=== PATIENT | female | born 1955 | race Asian ===

== ENCOUNTER 2016-09-27 11:24 | Emergency (ER) | payer OTHER ==
[~2016-09-27] VITALS: Ht 144.8 cm; Wt 65.3 kg
[~2016-09-27 11:24] MED LIST: ATOR20TA58 PO; CHOL100013 PO; CYCL10TA2 PO; TRAM50TA PO
[2016-09-27 11:41] VITALS: BP 165/78
[2016-09-27] MEDS ORDERED: VALA10005 PO (12:21)
[2016-09-27] MEDS ORDERED: HYDR-971 PO (12:21)
--- NOTE | 2016-09-27 12:21 | PHYS DOC ---
Past Medical History Past Medical History: High Cholesterol, Other Additional Past Medical Histor: "kidney problem" Past Surgical History: Other Additional Past Surgical Histo: right nephrectomy Alcohol Use: None Drug Use: None Adult General Chief Complaint Chief Complaint: SKIN RASH/ABSCESS [facility] Patient is a 61 year old female who presents with a right-sided facial rash and facial pain is been ongoing for approximately a week. Patient is not been seen anywhere for this. She denies eye involvement. She does report some right ear pain as well. Patient states that she has had chickenpox in the past. Patient denies any fevers or chills. She does report myalgias. Review of Systems Review of Systems Constitutional: Denies fever or chills [] Eyes: Denies change in visual acuity, redness, or eye pain [] HENT: Denies nasal congestion or sore throat [] Respiratory: Denies cough or shortness of breath [] Cardiovascular: No additional information not addressed in HPI [] GI: Denies abdominal pain, nausea, vomiting, bloody stools or diarrhea [] : Denies dysuria or hematuria [] Musculoskeletal: Denies back pain or joint pain [] Integument: Denies rash or skin lesions [] Neurologic: Denies headache, focal weakness or sensory changes [] Endocrine: Denies polyuria or polydipsia [] Allergies Allergies Allergies Coded Allergies Type Severity Reaction Last Updated Verified Beef Containing Products Allergy Unknown rash/soa 12/23/14 No Physical Exam Physical Exam Constitutional: Well developed, well nourished, no acute distress, non-toxic appearance. [] HENT: Normocephalic, atraumatic, bilateral external ears normal, oropharynx moist, no oral exudates, nose normal. [] Eyes: PERRLA, EOMI, conjunctiva normal, no discharge. [] Neck: Normal range of motion, no tenderness, supple, no stridor. [] Cardiovascular:Heart rate regular rhythm, no murmur [] Lungs & Thorax: Bilateral breath sounds clear to auscultation [] Abdomen: Bowel sounds normal, soft, no tenderness, no masses, no pulsatile masses. [] Skin: Cluster vesicles in a near linear distribution on patient's right cheek extending toward her temporal region. This area is exquisitely tender to palpation. Back: No tenderness, no CVA tenderness. [] Extremities: No tenderness, no cyanosis, no clubbing, ROM intact, no edema. [] Neurologic: Alert and oriented X 3, normal motor function, normal sensory function, no focal deficits noted. [] Psychologic: Affect normal, judgement normal, mood normal. [] Current Patient Data Vital Signs Vital Signs Date Time Temp Pulse Resp B/P Pulse Ox O2 Delivery O2 Flow Rate FiO2 09/27/16 11:41 98.3 56 18 165/78 97 Room Air 98.3 EKG EKG [] Radiology/Procedures Radiology/Procedures [] Course & Med Decision Making Course & Med Decision Making Pertinent Labs and Imaging studies reviewed. (See chart for details) [] Dragon Disclaimer Dragon Disclaimer This electronic medical record was generated, in whole or in part, using a voice recognition dictation system. Departure Departure Impression: Primary Impression: Shingles Disposition: 01 HOME, SELF-CARE Condition: GOOD Referrals: REYNA GACRIA MD (PCP) Patient Instructions: Shingles, [id number] Additional Instructions: 1. Take the medication as prescribed. 2. Review the discharge instructions provided for self-care and reasons to return to the emergency department. 3. Follow-up with Dr. Garcia on 05 October as scheduled. Scripts Valacyclovir Hcl (Valtrex)1,000 Mg Tablet1 Tab PO BID #20 TAB Prov:COLE EVANS 09/27/16 Hydrocodone/Apap 5-325 (Navarro 5-325 Tablet)1 Each Tablet1 Tab PO PRN Q6HRS PRN PAIN #15 TAB Prov:COLE EVANS 09/27/16 COLE EVANS September 27, 2016 12:21
== END 2016-09-27 12:30 | disposition home or self-care (01) ==
LOC: EDBD 11:24 → ER 11:24
DX: B02.9 Zoster without complications (principal); H92.01 Otalgia, right ear; R51 Headache; E78.00 Pure hypercholesterolemia, unspecified; Z90.5 Acquired absence of kidney; Z91.018 Allergy to other foods
CPT/HCPCS: 99283

== ENCOUNTER → 2017-10-09 | Outpatient (CLI) | payer OTHER | END | disposition home or self-care (01) | LOC: KCIC MAMMO 12:59 | DX: Z12.31 Encounter for screening mammogram for malignant neoplasm of breast (principal) | CPT/HCPCS: 77067 ==

== ENCOUNTER 2021-09-01 08:53 | Inpatient (IN) | payer MEDICARE, MEDICAID ==
[~2021-09-01] VITALS: Ht 149.9 cm; Wt 66.0 kg
[~2021-09-01 08:53] MED LIST changes: +CYCL10TA19 PO; -CYCL10TA2 PO; +HYDR-3164 PO; +VALA10005 PO
[2021-09-01] MEDS ORDERED: NITROGLYCERIN SUBLINGUAL 0.4 MG BOTTLE OF 25. SL PRN (09:15)
[2021-09-01] MEDS ORDERED: ASPIRIN CHEWABLE 81 MG TABLET. PO ONE (09:15)
--- NOTE | 2021-09-01 09:29 | PHYS DOC ---
Past Medical History Past Medical History: High Cholesterol, Other Additional Past Medical Histor: "kidney problem",CHRONIC PAIN,LEGALLY BLIND Past Surgical History: Other Additional Past Surgical Histo: right nephrectomy Smoking Status: Never Smoker Alcohol Use: None Drug Use: None General Adult EDM: Chief Complaint: Palpitations HPI: HPI: Patient is a 66-year-old female that presents today with chest pain, left arm tingling and palpitations. Patient is a [place] speaking and her son is at the bedside translating for her. Patient reported that she woke up between 4 and 5 today with some palpitations and what she described as substernal chest pain, that radiated down her left arm, and diaphoresis, patient states she continues to have substernal chest pain, but the pain in the arm and diaphoresis has subsided. According to the son the patient does not take any anticoagulation or antiplatelet therapy at this time. Patient does have a past medical history of a right nephrectomy, legally blind, GERD, high cholesterol and asthma. Son states that patient normally walks with a walker at home and has exertional dyspnea on a regular basis. Patient has had all of her COVID vaccines including her booster. Patient denies fever, chills, nausea, vomiting, or diarrhea. Review of Systems: Review of Systems: Constitutional: Denies fever or chills. [] Eyes: Denies change in visual acuity. [] HENT: Denies nasal congestion or sore throat. [] Respiratory: Denies cough or shortness of breath. [] Cardiovascular: Denies chest pain or edema. [] GI: Denies abdominal pain, nausea, vomiting, bloody stools or diarrhea. [] : Denies dysuria. [] Musculoskeletal: Denies back pain or joint pain. [] Integument: Denies rash. [] Neurologic: Denies headache, focal weakness or sensory changes. [] Endocrine: Denies polyuria or polydipsia. [] Lymphatic: Denies swollen glands. [] Psychiatric: Denies depression or anxiety. [] Heart Score: C/O Chest Pain: Yes HEART Score for Chest Pain: HEART Score for Chest Pain Response (Comments) Value History Moderately Suspicious 1 ECG Nonspecific Repolarizatio 1 Age > 65 2 Risk Factors 1 or 2 Risk Factors 1 Troponin >1-<3x Normal Limit 1 Total 6 Risk Factors: Risk Factors: DM, Current or recent (<one month) smoker, HTN, HLP, family history of CAD, obesity. Risk Scores: Score 0 - 3: 2.5% MACE over next 6 weeks - Discharge Home Score 4 - 6: 20.3% MACE over next 6 weeks - Admit for Clinical Observation Score 7 - 10: 72.7% MACE over next 6 weeks - Early Invasive Strategies Current Medications: Current Medications Medications (Trade) Dose Ordered Sig/Jason Start Time Stop Time Status Last Admin Dose Admin Aspirin (Aspirin Chewable) 324 mg 1X ONCE 09/01/21 09:15 09/01/21 09:16 UNV Nitroglycerin (Nitrostat) 0.4 mg PRN Q5MIN PRN 09/01/21 09:15 09/02/21 09:14 UNV Allergies: Allergies: Allergies Coded Allergies Type Severity Reaction Last Updated Verified Beef Containing Products Allergy Unknown rash/soa 12/23/14 No Physical Exam: PE: Constitutional: Well developed, well nourished, no acute distress, non-toxic appearance. [] HENT: Normocephalic, atraumatic, bilateral external ears normal, oropharynx moist, no oral exudates, nose normal. [] Eyes: PERRLA, EOMI, conjunctiva normal, no discharge. [] Neck: Normal range of motion, no tenderness, supple, no stridor. [] Cardiovascular:Heart rate regular rhythm, no murmur [] Lungs & Thorax: Bilateral breath sounds clear to auscultation [] Abdomen: Bowel sounds normal, soft, no tenderness, no masses, no pulsatile masses. [] Skin: Warm, dry, no erythema, no rash. [] Back: No tenderness, no CVA tenderness. [] Extremities: No tenderness, no cyanosis, no clubbing, ROM intact, no edema, peripheral pulses are 2+ Neurologic: Alert and oriented X 3, normal motor function, normal sensory function, no focal deficits noted. [] Psychologic: Affect normal, judgement normal, mood normal. [] Current Patient Data: Labs: Laboratory Tests Test 09/01/21 09:17 White Blood Count 10.8 x10^3/uL Red Blood Count 4.43 x10^6/uL Hemoglobin 12.3 g/dL Hematocrit 37.4 % Mean Corpuscular Volume 84 fL Mean Corpuscular Hemoglobin 28 pg Mean Corpuscular Hemoglobin Concent 33 g/dL Red Cell Distribution Width 14.3 % Platelet Count 262 x10^3/uL Neutrophils (%) (Auto) 69 % Lymphocytes (%) (Auto) 16 % Monocytes (%) (Auto) 8 % Eosinophils (%) (Auto) 6 % Basophils (%) (Auto) 1 % Neutrophils # (Auto) 7.4 x10^3/uL Lymphocytes # (Auto) 1.8 x10^3/uL Monocytes # (Auto) 0.9 x10^3/uL Eosinophils # (Auto) 0.7 x10^3/uL Basophils # (Auto) 0.1 x10^3/uL Prothrombin Time 12.5 SEC Prothromb Time International Ratio 1.0 Activated Partial Thromboplast Time 31 SEC Sodium Level 140 mmol/L Potassium Level 3.5 mmol/L Chloride Level 103 mmol/L Carbon Dioxide Level 27 mmol/L Anion Gap 10 Blood Urea Nitrogen 13 mg/dL Creatinine 1.1 mg/dL Estimated GFR (Cockcroft-Gault) 49.7 BUN/Creatinine Ratio 12 Glucose Level 99 mg/dL Calcium Level 8.6 mg/dL Total Bilirubin 0.4 mg/dL Aspartate Amino Transf (AST/SGOT) 11 U/L Alanine Aminotransferase (ALT/SGPT) 15 U/L Alkaline Phosphatase 76 U/L Troponin I High Sensitivity 111 ng/L VB-Clh-T-Type Natriuretic Peptide 1194 pg/mL Total Protein 6.6 g/dL Albumin 2.6 g/dL Albumin/Globulin Ratio 0.7 Lipase 43 U/L Current Medications Medications (Trade) Dose Ordered Sig/Jason Route PRN Reason Start Time Stop Time Status Last Admin Dose Admin Aspirin (Aspirin Chewable) 324 mg 1X ONCE PO 09/01/21 09:15 09/01/21 09:31 DC 09/01/21 09:59 Nitroglycerin (Nitrostat) 0.4 mg PRN Q5MIN PRN SL CP RATING > 1/10 09/01/21 09:15 09/02/21 09:14 09/01/21 10:00 Vital Signs: Vital Signs Date Time Temp Pulse Resp B/P (MAP) Pulse Ox O2 Delivery O2 Flow Rate FiO2 09/01/21 15:01 97.7 62 18 139/75 (96) 98 Room Air 97.7 09/01/21 12:05 62 137/65 (89) 98 Room Air 4/7/22 11:35 60 140/70 (93) 99 Room Air 09/01/21 11:05 64 137/72 (93) 98 Room Air 09/01/21 10:35 64 144/70 (94) 97 Room Air 09/01/21 10:05 68 117/59 (78) 97 Room Air 09/01/21 10:00 63 137/76 09/01/21 09:59 62 137/76 (96) 98 Room Air 09/01/21 09:35 64 138/79 (98) 98 Room Air 09/01/21 08:58 97.9 64 20 148/84 (105) 98 Room Air 97.9 Vital Signs Date Time Temp Pulse Resp B/P (MAP) Pulse Ox O2 Delivery O2 Flow Rate FiO2 09/01/21 08:58 97.9 64 20 148/84 (105) 98 Room Air 97.9 EKG: EKG: EKG done at [address] Rodriguez [] at 911 showed sinus rhythm at a rate of 67 with a AZ interval of 170 ms with a QTC 434 ms no STEMI Radiology/Procedures: Radiology/Procedures: [REASON: chest pain PROCEDURE: PORTABLE CHEST 1V EXAMINATION: XR CHEST 1V CLINICAL HISTORY: Chest pain. EXAM DATE/TIME: 09/01/2021 9:22 AM COMPARISON: None FINDINGS: Lines, Tubes, and Devices: None. Cardiomediastinal Silhouette: Prominent cardiac silhouette, likely accentuated by AP portable technique. Lungs and Pleura: Mild bibasilar opacities. No definite pleural effusion. No pneumothorax. Bones and Soft Tissues: Degenerative changes in the thoracic spine. IMPRESSION: Mild bibasilar airspace disease. Electronically signed by: Montrell Albright DO (09/01/2021 9:47 AM) [id number] ] Course & Med Decision Making: Course & Med Decision Making Pertinent Labs and Imaging studies reviewed. (See chart for details) 1050 spoke to patient and son at the bedside, patient is currently not having any pain at this time, I did inform them that the patient's troponin was mildly elevated and with her symptoms and her past medical history I feel it is safe to admit her to the hospital for further evaluation and trending of her troponins. Son and patient are agreeable with the plan of care. Dr. Villatoro has been paged. [id number] Villatoro and he is agreeable to admitting the patient. Will consult cardiology Orlin Disclaimer: Orlin Disclaimer: This electronic medical record was generated, in whole or in part, using a voice recognition dictation system. Departure Departure Impression: Primary Impression: Chest pain Qualified Codes: R07.9 - Chest pain, unspecified Disposition: ADMITTED INPATIENT Admitting Physician: SHIKHA Condition: STABLE Referrals: REYNA AYALA MD (PCP) ERNESTINE HOLLEY APRN Sep 01, 2021 09:29
[2021-09-01 09:35] LABS: BASO # 0.1 x10^3/uL (0.0-0.2); BASO % 1 % (0-3); EOS # 0.7 x10^3/uL (0.0-0.7); EOS % 6 % (0-3); HEMATOCRIT 37.4 % (36.0-47.0); HEMOGLOBIN 12.3 g/dL (12.0-15.5); LYMPH # 1.8 x10^3/uL (1.0-4.8); LYMPH % 16 % (24-48); MEAN CORPUSCULAR HEMOGLOBIN 28 pg (25-35); MEAN CORPUSCULAR HGB CONC 33 g/dL (31-37); MEAN CORPUSCULAR VOLUME 84 fL (79-100); MONO # 0.9 x10^3/uL (0.0-1.1); MONO % 8 % (0-9); NEUT # 7.4 x10^3/uL (1.8-7.7); NEUT % 69 % (31-73); PLATELET COUNT 262 x10^3/uL (140-400); RED BLOOD COUNT 4.43 x10^6/uL (3.50-5.40); RED CELL DISTRIBUTION WIDTH 14.3 % (11.5-14.5); WHITE BLOOD COUNT 10.8 x10^3/uL (4.0-11.0)
[2021-09-01 09:48] LABS: PROTHROMBIN TIME PATIENT 12.5 SEC (11.7-14.0)
--- NOTE | 2021-09-01 09:50 | RAD ---
EXAMINATION: XR CHEST 1V CLINICAL HISTORY: Chest pain. EXAM DATE/TIME: 09/01/2021 9:22 AM COMPARISON: None FINDINGS: Lines, Tubes, and Devices: None. Cardiomediastinal Silhouette: Prominent cardiac silhouette, likely accentuated by AP portable techniq ue. Lungs and Pleura: Mild bibasilar opacities. No definite pleural effusion. No pneumothorax. Bones and Soft Tissues: Degenerative changes in the thoracic spine. IMPRESSION: Mild bibasilar airspace disease. Electronically signed by: Montrell Albright DO (09/01/2021 9:47 AM) [id number]
[2021-09-01 09:53] LABS: CALCIUM 8.6 mg/dL (8.5-10.1); CREATININE 1.1 mg/dL (0.6-1.0); GFR 49.7; POTASSIUM 3.5 mmol/L (3.5-5.1)
[2021-09-01 09:59] LABS: ALBUMIN 2.6 g/dL (3.4-5.0); ALBUMIN/GLOBULIN RATIO 0.7 (1.0-1.7); TOTAL BILIRUBIN 0.4 mg/dL (0.2-1.0); TOTAL PROTEIN 6.6 g/dL (6.4-8.2)
--- NOTE | 2021-09-01 10:11 | EKG ---
[facility] [address] [place] [address] Test Date: 2021-09-01 Test Time: 09:09:48 Pat Name: DEANNA CHANG Department: Room: Gender: F [employer] Shift Commander: : 1955 Requested By: ERNESTINE HOLLEY Order Number: [id number] Reading MD: Zion Cortes Measurements Intervals Balko Rate: 67 P: 28 NM: 170 QRS: -31 QRSD: 84 T: 17 QT: 408 QTc: 434 Interpretive Statements SINUS RHYTHM ABNORMAL LEFT AXIS DEVIATION LEFT ANTERIOR FASCICULAR BLOCK QRS(T) CONTOUR ABNORMALITY CONSIDER ANTEROSEPTAL MYOCARDIAL DAMAGE Electronically Signed On 09-09-2021 14:24:40 CDT by Zion Cortes
--- NOTE | 2021-09-01 11:47 | PDOC2 ---
IQRA QUARLES CROSS ROLLER 09/01/21 1147: CARDIAC CONSULT DATE OF CONSULT Date of Consult DATE: 09/01/21 TIME: 11:46 REASON FOR CONSULT Reason for Consult: Chest pain REFERRING PHYSICIAN Referring Physician: Sarthak SOURCE Source: Chart review, Patient HISTORY OF PRESENT ILLNESS HISTORY OF PRESENT ILLNESS This is a [place]ot[place] female admitted for complains of chest pain with also palpitations with left arm tingling. She has been having [place]TG[place] and diaphoresis and nausea I talked to her via her son who speaks Yoruba. Her symptoms woke her up this morning. No prior hx of VTE, CAD or arrhythmias. She has had her covid-19 vaccine.. No fever chills,falls or injury. PAST MEDICAL HISTORY Cardiovascular: HTN, Hyperlipidemia Pulmonary: Asthma GI: GERD Infectious disease: Other (chingles) ENT: Other (legally blind) PAST SURGICAL HISTORY Past Surgical History: Other (right nephrectomy due to infection) FAMILY HISTORY Family History noncontributory to CV Family History: Family History Unknown SOCIAL HISTORY Smoke: No ALCOHOL: none Drugs: None Lives: with Family CURRENT MEDICATIONS CURRENT MEDICATIONS Current Medications Medications (Trade) Dose Ordered Sig/Jason Route PRN Reason Start Time Stop Time Status Last Admin Dose Admin Aspirin (Aspirin Chewable) 324 mg 1X ONCE PO 09/01/21 09:15 09/01/21 09:31 DC 09/01/21 09:59 Nitroglycerin (Nitrostat) 0.4 mg PRN Q5MIN PRN SL CP RATING > 1/10 09/01/21 09:15 09/02/21 09:14 09/01/21 10:00 ALLERGIES ALLERGIES: Coded Allergies: Beef Containing Products (Unverified Allergy, Unknown, rash/soa, 12/23/14) ROS Review of System limited, language barrier PHYSICAL EXAM General: Alert, Oriented X3, Cooperative, No acute distress HEENT: Atraumatic, Mucous membr. moist/pink Lungs: Clear to auscultation, Normal air movement Heart: Regular rate (SR), Normal S1, Normal S2, Other (3/6 holosystolic murmur apex) Abdomen: Soft, No tenderness Extremities: No cyanosis, No edema Skin: No breakdown, No significant lesion Neuro: Normal speech, Sensation intact Psych/Mental Status: Mental status NL, Mood NL MUSCULOSKELETAL: Osteoarthritic changes both hands VITALS/I&O VITALS/I&O: Vital Signs Date Time Temp Pulse Resp B/P (MAP) Pulse Ox O2 Delivery O2 Flow Rate FiO2 09/01/21 10:05 68 117/59 (78) 97 Room Air 09/01/21 08:58 97.9 20 97.9 LABS Lab: Laboratory Tests Test 09/01/21 09:17 White Blood Count 10.8 x10^3/uL (4.0-11.0) Red Blood Count 4.43 x10^6/uL (3.50-5.40) Hemoglobin 12.3 g/dL (12.0-15.5) Hematocrit 37.4 % (36.0-47.0) Mean Corpuscular Volume 84 fL (79-100) Mean Corpuscular Hemoglobin 28 pg (25-35) Mean Corpuscular Hemoglobin Concent 33 g/dL (31-37) Red Cell Distribution Width 14.3 % (11.5-14.5) Platelet Count 262 x10^3/uL (140-400) Neutrophils (%) (Auto) 69 % (31-73) Lymphocytes (%) (Auto) 16 % (24-48) L Monocytes (%) (Auto) 8 % (0-9) Eosinophils (%) (Auto) 6 % (0-3) H Basophils (%) (Auto) 1 % (0-3) Neutrophils # (Auto) 7.4 x10^3/uL (1.8-7.7) Lymphocytes # (Auto) 1.8 x10^3/uL (1.0-4.8) Monocytes # (Auto) 0.9 x10^3/uL (0.0-1.1) Eosinophils # (Auto) 0.7 x10^3/uL (0.0-0.7) Basophils # (Auto) 0.1 x10^3/uL (0.0-0.2) Prothrombin Time 12.5 SEC (11.7-14.0) Prothrombin Time INR 1.0 (0.8-1.1) Activated Partial Thromboplast Time 31 SEC (24-38) Sodium Level 140 mmol/L (136-145) Potassium Level 3.5 mmol/L (3.5-5.1) Chloride Level 103 mmol/L (98-107) Carbon Dioxide Level 27 mmol/L (21-32) Anion Gap 10 (6-14) Blood Urea Nitrogen 13 mg/dL (7-20) Creatinine 1.1 mg/dL (0.6-1.0) H Estimated GFR (Cockcroft-Gault) 49.7 BUN/Creatinine Ratio 12 (6-20) Glucose Level 99 mg/dL (70-99) Calcium Level 8.6 mg/dL (8.5-10.1) Total Bilirubin 0.4 mg/dL (0.2-1.0) Aspartate Amino Transferase (AST) 11 U/L (15-37) L Alanine Aminotransferase (ALT) 15 U/L (14-59) Alkaline Phosphatase 76 U/L (46-116) Troponin I High Sensitivity 111 ng/L (4-50) H JL-[id number]-F-Type Natriuretic Peptide 1194 pg/mL (0-124) H Total Protein 6.6 g/dL (6.4-8.2) Albumin 2.6 g/dL (3.4-5.0) L Albumin/Globulin Ratio 0.7 (1.0-1.7) L Lipase 43 U/L (73-393) L Laboratory Tests 09/01/21 09:17 Laboratory Tests 09/01/21 09:17 ASSESSMENT/PLAN ASSESSMENT/PLAN 1. NSTEMI: typical features 2. Hx of right nephrectomy 3. HLP 4. systolic murmur Recommendations 1. TTE, FLP 2. ASA and lovenox 3. LHC tomorrow, risks and benefits discussed with pt and son and agreeable to proceed. CHETAN LLANOS MD 09/01/21 2223: CARDIAC CONSULT ASSESSMENT/PLAN ASSESSMENT/PLAN Patient seen and examined. Agree with TOOL CRIB MANAGER's assessment and plan Agree with cardiac cath to further evaluate patient's NSTEMI Check 2D echo to assess LVF Thank you for your consultation IQRA QUARLES APRN Sep 01, 2021 11:47 CHETAN LLANOS MD Sep 01, 2021 22:23
[2021-09-01 12:04] LABS: BACTERIA,URINE FEW /HPF (0-FEW); RBC,URINE OCC /HPF (0-2)
[2021-09-01 12:30] VITALS: BP 132/76
[2021-09-01] MEDS ORDERED: traMADol 50 MG TABLET PO PRN (13:15)
--- NOTE | 2021-09-01 13:24 | PDOC1 ---
History and Physical Date of Service: DOS: DATE: 09/01/21 TIME: 13:19 Chief Complaint: Chief Complain: chest pain History of Present Illness: HPI: Patient is a 66-year-old female that presents today with chest pain, left arm tingling and palpitations. Patient is a [place] speaking and her son is at the bedside translating for her. Patient reported that she woke up between 4 and 5 today with some palpitations and what she described as substernal chest pain, that radiated down her left arm, and diaphoresis, patient states she continues to have substernal chest pain, but the pain in the arm and diaphoresis has subsided. According to the son the patient does not take any anticoagulation or antiplatelet therapy at this time. Patient does have a past medical history of a right nephrectomy, legally blind, GERD, high cholesterol and asthma. Son states that patient normally walks with a walker at home and has exertional dyspnea on a regular basis. Patient has had all of her COVID vaccines including her booster. Patient denies fever, chills, nausea, vomiting, or diarrhea. Past Medical/Surgical History: PMH/PSH: Past Medical History: High Cholesterol, Additional Past Medical Histor: "kidney problem",CHRONIC PAIN,LEGALLY BLIND Past Surgical History: Other Additional Past Surgical Histo: right nephrectomy Smoking Status: Never Smoker Alcohol Use: None Drug Use: None Allergies: Allergies: Coded Allergies: Beef Containing Products (Unverified Allergy, Unknown, rash/soa, 12/23/14) Family History: Family History: hyperlipidemia Current Medications: Current Medications Current Medications Aspirin (Aspirin Chewable) 324 mg 1X ONCE PO Last administered on 09/01/21at 09:59; Start 09/01/21 at 09:15; Stop 09/01/21 at 09:31; Status DC Nitroglycerin (Nitrostat) 0.4 mg PRN Q5MIN PRN SL CP RATING > 1/10 Last administered on 09/01/21at 10:00; Start 09/01/21 at 09:15; Stop 09/02/21 at 09:14 Enoxaparin Sodium (Lovenox 60mg Syringe) 60 mg 1X ONCE SQ Last administered on 09/01/21at 12:08; Start 09/01/21 at 12:00; Stop 09/01/21 at 12:01; Status DC Atorvastatin Calcium (Lipitor) 20 mg DAILY PO ; Start 09/02/21 at 09:00; Status UNV Tramadol HCl (Ultram) 50 mg PRN Q6HRS PO ; Start 09/01/21 at 13:15; Status UNV Non-Formulary Medication (Valacyclovir Hcl (Valtrex)) 1 tab BID PO ; Start 09/01/21 at 21:00; Status UNV Active Scripts Active Valtrex (Valacyclovir Hcl) 1,000 Mg Tablet 1 Tab PO BID [place] 5-325 Tablet (Acetaminophen/Hydrocodone Bitart) 1 Each Tablet 1 Tab PO PRN Q6HRS PRN Reported Vitamin D (Cholecalciferol (Vitamin D3)) 1,000 Unit Capsule 1 Cap PO DAILY Atorvastatin Calcium 20 Mg Tablet 1 Tab PO DAILY Tramadol Hcl 50 Mg Tablet 1 Tab PO PRN Q6HRS Cyclobenzaprine Hcl 10 Mg Tablet 1 Tab PO TID ROS: Review of Systems Review of System REVIEW OF SYSTEMS: Unless noted in HPI 14 point review systems was negative Physical Exam: Vital Signs: Vital Signs Date Time Temp Pulse Resp B/P (MAP) Pulse Ox O2 Delivery O2 Flow Rate FiO2 09/01/21 12:05 62 137/65 (89) 98 Room Air 09/01/21 08:58 97.9 20 97.9 Physcial Exam: GEN: No apparent distress. Alert and oriented HEENT: Normal cephalic, atraumatic, external auditory canals are patent EYES: Extraocular muscles are intact, pupil are equally round and reactive to light and accommodation MUSCULOSKELETAL: Well developed , well nourished, good range of motion ENDOCRINE: No thyromegaly was palpated LYMPHATICS: No cervical chain or axillary nodes were noted HEMATOPOIETIC: No bruising NECK: Supple, no JVD, no thyromegaly was noted LUNGS: Clear to auscultation in all lung lizarraga without rhonchi or wheezing HEART: RRR, S!, S2 present. Peripheral pulses intact, no obvious murmurs noted ABDOMEN: Soft, nontender. Positive bowel sounds, no organomegaly, normal bowel sounds EXTREMITIES: Without clubbing, cyanosis, or edema. Pedal pulses intact. Negative Homans sign NEUROLOGIC: Normal speech and tone. A&O x 3, moves all extremities, no obvious focal deficits PSYCHIATRIC: Normal affect, normal mood. Stable SKIN: No ulcerations or rashes, good skin turgor, no jaundice VASCULAR: Good capillary refill, neurovascular bundle appears to be intact Labs: Labs: Laboratory Tests Test 09/01/21 09:17 09/01/21 11:10 White Blood Count 10.8 x10^3/uL (4.0-11.0) Red Blood Count 4.43 x10^6/uL (3.50-5.40) Hemoglobin 12.3 g/dL (12.0-15.5) Hematocrit 37.4 % (36.0-47.0) Mean Corpuscular Volume 84 fL (79-100) Mean Corpuscular Hemoglobin 28 pg (25-35) Mean Corpuscular Hemoglobin Concent 33 g/dL (31-37) Red Cell Distribution Width 14.3 % (11.5-14.5) Platelet Count 262 x10^3/uL (140-400) Neutrophils (%) (Auto) 69 % (31-73) Lymphocytes (%) (Auto) 16 % (24-48) Monocytes (%) (Auto) 8 % (0-9) Eosinophils (%) (Auto) 6 % (0-3) Basophils (%) (Auto) 1 % (0-3) Neutrophils # (Auto) 7.4 x10^3/uL (1.8-7.7) Lymphocytes # (Auto) 1.8 x10^3/uL (1.0-4.8) Monocytes # (Auto) 0.9 x10^3/uL (0.0-1.1) Eosinophils # (Auto) 0.7 x10^3/uL (0.0-0.7) Basophils # (Auto) 0.1 x10^3/uL (0.0-0.2) Prothrombin Time 12.5 SEC (11.7-14.0) Prothromb Time International Ratio 1.0 (0.8-1.1) Activated Partial Thromboplast Time 31 SEC (24-38) Sodium Level 140 mmol/L (136-145) Potassium Level 3.5 mmol/L (3.5-5.1) Chloride Level 103 mmol/L (98-107) Carbon Dioxide Level 27 mmol/L (21-32) Anion Gap 10 (6-14) Blood Urea Nitrogen 13 mg/dL (7-20) Creatinine 1.1 mg/dL (0.6-1.0) Estimated GFR (Cockcroft-Gault) 49.7 BUN/Creatinine Ratio 12 (6-20) Glucose Level 99 mg/dL (70-99) Calcium Level 8.6 mg/dL (8.5-10.1) Total Bilirubin 0.4 mg/dL (0.2-1.0) Aspartate Amino Transf (AST/SGOT) 11 U/L (15-37) Alanine Aminotransferase (ALT/SGPT) 15 U/L (14-59) Alkaline Phosphatase 76 U/L (46-116) Troponin I High Sensitivity 111 ng/L (4-50) CR-Eat-V-Type Natriuretic Peptide 1194 pg/mL (0-124) Total Protein 6.6 g/dL (6.4-8.2) Albumin 2.6 g/dL (3.4-5.0) Albumin/Globulin Ratio 0.7 (1.0-1.7) Lipase 43 U/L (73-393) Urine Collection Type Void Urine Color (Auto) Light yellow Urine Turbidity Clear Urine pH (Auto) 6.0 (<5.0-8.0) Urine Specific [place] 1.009 (1.000-1.030) Urine Protein (Auto) Negative mg/dL (Negative) Urine Glucose (Auto)(UA) Negative mg/dL (Negative) Urine Ketones (Auto) Negative mg/dL (Negative) Urine Blood (Auto) Negative (Negative) Urine Nitrite Negative (Negative) Urine Bilirubin (Auto) Negative (Negative) Urine Urobilinogen (Auto) Normal mg/dL (Normal) Urine Leukocyte Esterase (Auto) Negative (Negative) Urine RBC Occ /HPF (0-2) Urine WBC 5-10 /HPF (0-4) Urine Squamous Epithelial Cells Mod /LPF Urine Bacteria Few /HPF (0-FEW) Laboratory Tests Test 09/01/21 09:17 09/01/21 11:10 White Blood Count 10.8 x10^3/uL (4.0-11.0) Red Blood Count 4.43 x10^6/uL (3.50-5.40) Hemoglobin 12.3 g/dL (12.0-15.5) Hematocrit 37.4 % (36.0-47.0) Mean Corpuscular Volume 84 fL (79-100) Mean Corpuscular Hemoglobin 28 pg (25-35) Mean Corpuscular Hemoglobin Concent 33 g/dL (31-37) Red Cell Distribution Width 14.3 % (11.5-14.5) Platelet Count 262 x10^3/uL (140-400) Neutrophils (%) (Auto) 69 % (31-73) Lymphocytes (%) (Auto) 16 % (24-48) Monocytes (%) (Auto) 8 % (0-9) Eosinophils (%) (Auto) 6 % (0-3) Basophils (%) (Auto) 1 % (0-3) Neutrophils # (Auto) 7.4 x10^3/uL (1.8-7.7) Lymphocytes # (Auto) 1.8 x10^3/uL (1.0-4.8) Monocytes # (Auto) 0.9 x10^3/uL (0.0-1.1) Eosinophils # (Auto) 0.7 x10^3/uL (0.0-0.7) Basophils # (Auto) 0.1 x10^3/uL (0.0-0.2) Prothrombin Time 12.5 SEC (11.7-14.0) Prothromb Time International Ratio 1.0 (0.8-1.1) Activated Partial Thromboplast Time 31 SEC (24-38) Sodium Level 140 mmol/L (136-145) Potassium Level 3.5 mmol/L (3.5-5.1) Chloride Level 103 mmol/L (98-107) Carbon Dioxide Level 27 mmol/L (21-32) Anion Gap 10 (6-14) Blood Urea Nitrogen 13 mg/dL (7-20) Creatinine 1.1 mg/dL (0.6-1.0) Estimated GFR (Cockcroft-Gault) 49.7 BUN/Creatinine Ratio 12 (6-20) Glucose Level 99 mg/dL (70-99) Calcium Level 8.6 mg/dL (8.5-10.1) Total Bilirubin 0.4 mg/dL (0.2-1.0) Aspartate Amino Transf (AST/SGOT) 11 U/L (15-37) Alanine Aminotransferase (ALT/SGPT) 15 U/L (14-59) Alkaline Phosphatase 76 U/L (46-116) Troponin I High Sensitivity 111 ng/L (4-50) WW-Igj-A-Type Natriuretic Peptide 1194 pg/mL (0-124) Total Protein 6.6 g/dL (6.4-8.2) Albumin 2.6 g/dL (3.4-5.0) Albumin/Globulin Ratio 0.7 (1.0-1.7) Lipase 43 U/L (73-393) Urine Collection Type Void Urine Color (Auto) Light yellow Urine Turbidity Clear Urine pH (Auto) 6.0 (<5.0-8.0) Urine Specific [place] 1.009 (1.000-1.030) Urine Protein (Auto) Negative mg/dL (Negative) Urine Glucose (Auto)(UA) Negative mg/dL (Negative) Urine Ketones (Auto) Negative mg/dL (Negative) Urine Blood (Auto) Negative (Negative) Urine Nitrite Negative (Negative) Urine Bilirubin (Auto) Negative (Negative) Urine Urobilinogen (Auto) Normal mg/dL (Normal) Urine Leukocyte Esterase (Auto) Negative (Negative) Urine RBC Occ /HPF (0-2) Urine WBC 5-10 /HPF (0-4) Urine Squamous Epithelial Cells Mod /LPF Urine Bacteria Few /HPF (0-FEW) Assessment/Plan Assessment/Plan NSTEMI, hx hpld, nephrectomy -1d hx chest pain -elevated trop and bnp on arrive cardiology consultation --> planning [facility] tomorrow - +/- heparin drip per cardiology -as needed pain control -npo midnight, cardiac diet in meantime Justifications for Admission Other Justification JUAN ANTONIO GOODSON MD Sep 01, 2021 13:24
[2021-09-01] MEDS ORDERED: ACETAMINOPHEN 325 MG TABLET. PO PRN (13:30)
[2021-09-01] MEDS ORDERED: ELECTROLYTE (NON-ICU) PROTOCOL. MC PRN (13:30)
[2021-09-01] MEDS ORDERED: oxyCODONE/APAP 5/325 1 TAB TABLET PO PRN ×2 (13:30)
[2021-09-01] MEDS ORDERED: ONDANSETRON PF 4 MG/2 ML VIAL. IVP PRN (13:30)
[2021-09-01] MEDS ORDERED: ZOLPIDEM 5 MG TABLET. PO PRN (13:30)
[2021-09-01 15:01] VITALS: BP 139/75
[2021-09-01 19:00] VITALS: BP 165/77
[2021-09-01] MEDS ORDERED: ATORVASTATIN CALCIUM 20 MG TABLET PO SCH (21:00)
[2021-09-01] MEDS: valACYclovir 500 MG TABLET. PO SCH (22:49)
[2021-09-01] MEDS: SENNOSIDES/DOCUSATE 8.6/50MG TABLET. PO SCH (22:49)
[2021-09-01 22:55] VITALS: BP 174/85
[2021-09-01] MEDS ORDERED: IV NORMAL SALINE 1000ML BAG 1,000 ML IV ONE (23:00)
--- NOTE | 2021-09-01 23:00 | NUR ---
CONSENT OBTAINED FOR A CARDIC CATH. AND SON AT THE BEDSIDE. NO QUESTIONS. LCRN
[2021-09-02] VITALS (16 sets, daily range): BP systolic 145–172; BP diastolic 76–96
[2021-09-02] MEDS ORDERED: ALBU2.5V8 IH (03:26)
[2021-09-02 05:47] LABS: CHOLESTEROL/HDL RATIO 5.5
--- NOTE | 2021-09-02 05:58 | NUR ---
PT HAS EPISODES OF O2 SATS GOING 79-98 %. MONITOR HAS A GOOD WAVEFORM. LCRN
[2021-09-02] MEDS: SENNOSIDES/DOCUSATE 8.6/50MG TABLET. PO SCH ×2 (09:46→22:52)
[2021-09-02] MEDS: valACYclovir 500 MG TABLET. PO SCH ×2 (09:46→22:52)
[2021-09-02] MEDS: ASPIRIN ENTERIC COATED 81 MG TABLET.DR. PO SCH (09:46)
[2021-09-02] MEDS ORDERED: LIDOCAINE 1% PF 2 ML VIAL. ONE (10:51)
[2021-09-02] MEDS ORDERED: IODIXANOL 320 MG/ML 100 ML VIAL. ONE (10:51)
[2021-09-02] MEDS ORDERED: fentaNYL PF VIAL 100 MCG/2 ML VIAL ONE (10:57)
[2021-09-02] MEDS ORDERED: HEPARIN for IV BOLUS 10,000 UNIT/10 ML VIAL. ONE (10:57)
[2021-09-02] MEDS ORDERED: VERAPAMIL 5 MG/2 ML VIAL. ONE (10:57)
[2021-09-02] MEDS ORDERED: MIDAZOLAM HCL/PF 2 MG/2 ML VIAL. ONE (10:57)
[2021-09-02] MEDS ORDERED: NITROGLYCERIN 200 MCG/2 ML SYRINGE FOR CATH/VASC LAB. ONE (10:59)
[2021-09-02] MEDS ORDERED: VERAPAMIL 5 MG/2 ML VIAL. IART ONE (11:15)
[2021-09-02] MEDS ORDERED: HEPARIN for IV BOLUS 10,000 UNIT/10 ML VIAL. IART ONE (11:15)
[2021-09-02] MEDS ORDERED: IODIXANOL 320 MG/ML 100 ML VIAL. IART ONE (11:15)
[2021-09-02] MEDS ORDERED: fentaNYL PF VIAL 100 MCG/2 ML VIAL IV ONE (11:15)
[2021-09-02] MEDS ORDERED: NITROGLYCERIN 200 MCG/2 ML SYRINGE FOR CATH/VASC LAB. IART ONE (11:15)
[2021-09-02] MEDS ORDERED: MIDAZOLAM HCL/PF 2 MG/2 ML VIAL. IV ONE (11:15)
[2021-09-02] MEDS ORDERED: LIDOCAINE 1% PF 2 ML VIAL. INJ ONE (11:15)
--- NOTE | 2021-09-02 12:23 | PDOC ---
MODERATE SEDATION ASSESSMENT RISKS/ALTERNATIVES Risks/Alternatives Risks and alternatives of this type of sedation and procedure discussed with: RISK/ALTERNATIVES: Patient H & P ON CHART H & P H & P on chart and reviewed for co-morbid conditions and appropriate labs. H&P ON CHART: Yes STATUS PREG STATUS ASSESSED: N/A MEDS/ALLERGIES REVIEWED Meds/Allergies Reviewed Medications and Allergies including time and route of recently administered narcotics and sedatives. MEDS/ALLERGIES REVIEWED: Yes ASA RATING ASA RATING: II AIRWAY ASSESSMENT Airway Assessment Airway patency, oral function limitations, presence of caps, crowns, dentures, partials, and ability to extend neck assessed. AIRWAY ASSESSMENT: Yes MALLAMPATI SCORE MALLAMPATI SCORE: II PRE-SEDATION ASSESSMENT PRE-SEDATION ASSESSMENT: Yes CHETAN LLANOS MD Sep 02, 2021 12:23
[2021-09-02] MEDS ORDERED: NITROGLYCERIN SUBLINGUAL 0.4 MG BOTTLE OF 25. SL PRN (12:30)
--- NOTE | 2021-09-02 12:35 | CARD ---
MR#: [id number] Date of Study: 09/02/2021 Ordering Physician: CHETAN CORTES, Referring Physician: CHETAN CORTES Tech: RT Sahara(R) APPROVED REPORT Technologist: RT Sahara(R) Nurse: Abi Strauss RN Procedure(s) performed: Left heart catheterization, selective coronary angiography and left ventricul ography via right transradial approach MODERATE SEDATION TIME: 30 MINUTES FLUORO TIME: 3.6 MIN DOSE: 31.7 GYCM2 CONTRAST: 129CC VISI INDICATION The indication(s) include : non-STEMI . [facility] Clinical Frailty Scale [facility] Clinical Frailty Scale: Moderately Frail Heart Failure Heart Failure: No CASE TECHNIQUE IV conscious sedation was used throughout procedure with appropriate monitoring and was performed in the presence of a registered nurse who was an independent trained observer other than the physician p erforming the procedure. During this case, Fluoroscopy and low osmolar contrast were used for imaging . Specimen(s) Removed: No Estimated Blood loss: 15 cc's. PROCEDURE NARRATIVE After explaining the risks, benefits and alternative options, informed consent was obtained from sigifredo ent. Patient was brought to the cardiac Truck Trailer Final Inspector and right wrist was prepped and draped in the usual fashion after confirming a positive modified Nathan's test. Arterial access was obtained in the righ t radial artery and a 6 Ethiopian sheath was inserted. 6 Ethiopian Damien and 6 Ethiopian JL 3.5 catheters we re used to perform selective angiography of the right and left coronary arteries. 6 Ethiopian pigtail c atheter was used to perform left ventriculography. Patient tolerated the procedure well. Hemostasis was achieved using TR band. There were no immediate complications. The following findings were not ed. FINDINGS 1. Hemodynamics: Left ventricular end-diastolic pressure of 7 mmHg. No pullback gradient across the aortic valve. 2. Left ventriculography: Diaphragmatic wall hypokinesis with ejection fraction estimated at 55%. N o significant mitral regurgitation seen. 3. Coronary angiography: a. The left main coronary artery arose from the left sinus of Valsalva, gave rise to the left anteri or descending and left circumflex arteries and did not show any significant stenosis. b. The left anterior descending artery showed 80% bifurcation lesion involving the mid segment of LA D and the diagonal branch. c. The left circumflex artery showed 100% chronic total occlusion in the proximal to mid segment wit h distal reconstitution of obtuse marginal branches from left to left collaterals. d. The right coronary artery arose from the right sinus of Valsalva and showed 100% chronic total oc clusion in the proximal segment with distal reconstitution of posterior descending and posterolateral branches from left to right collaterals. Conclusion 1. Severe three-vessel coronary artery disease as described above 2. Diaphragmatic wall hypokinesis with ejection fraction estimated at 55% Recommendations Cardiothoracic surgery team consultation for possible coronary artery bypass surgery. If she is deem ed a poor candidate for surgery, we will consider PCI/ARON to LAD and possibly LCx. Cardiovascular risk factor modification Signed by : Chetan Cortes, Electronically Approved : 09/02/2021 12:34:50
[2021-09-02] MEDS: IV 1/2 NORMAL SALINE 1,000 ML IV SCH (13:27)
--- NOTE | 2021-09-02 16:28 | PDOC ---
[facility] [facility] PROGRESS NOTE Date of Service DOS: DATE: 09/02/21 TIME: 16:18 Chief Complaint Chief Complaint NSTEMI, htn hyperlipids CAD Hx nephrectomy, CKD 3, carful with contrast and kidney, fluid, not diuresis now severe malnutrition, alb 2.6 acute systolic CHF, BNP up History of Present Illness History of Present Illness Conclusion 1. Severe three-vessel coronary artery disease as described above 2. Diaphragmatic wall hypokinesis with ejection fraction estimated at 55% Vitals/I&O Vitals/I&O: Vital Signs Date Time Temp Pulse Resp B/P (MAP) Pulse Ox O2 Delivery O2 Flow Rate FiO2 09/02/21 15:00 98.1 65 16 165/78 (107) 95 98.1 09/02/21 12:10 Nasal Cannula 2.0 I & O 09/01/21 09/01/21 09/02/21 15:00 23:00 07:00 Intake Total 250 ml 200 ml Balance 250 ml 200 ml Physical Exam General: Alert, Oriented X3, Cooperative, No acute distress Heart: Regular rate (SR), Normal S1, Normal S2, Other (3/6 holosystolic murmur apex) Abdomen: Soft, No tenderness Extremities: No cyanosis, No edema Skin: No breakdown, No significant lesion Labs Labs: Laboratory Tests Test 09/02/21 04:00 Triglycerides Level 140 mg/dL (0-150) Cholesterol Level 208 mg/dL (0-200) LDL Cholesterol, Calculated 142 mg/dL (0-100) VLDL Cholesterol, Calculated 28 mg/dL (0-40) Non-HDL Cholesterol Calculated 170 mg/dL (0-129) HDL Cholesterol 38 mg/dL (40-60) Cholesterol/HDL Ratio 5.5 Assessment and Plan Assessmemt and Plan Problems Medical Problems: (1) Chest pain Status: Acute Comment Review of Relevant I have reviewed the following items edel (where applicable) has been applied. Medications: Current Medications Medications (Trade) Dose Ordered Sig/Jason Route PRN Reason Start Time Stop Time Status Last Admin Dose Admin Atorvastatin Calcium (Lipitor) 20 mg QHS PO 09/01/21 21:00 09/02/21 15:43 DC 09/01/21 22:49 Valacyclovir HCl (Valtrex) 1,000 mg BID PO 09/01/21 21:00 09/02/21 09:46 Senna/Docusate Sodium (Senna Plus) 1 tab BID PO 09/01/21 21:00 09/02/21 09:46 Aspirin (Ecotrin) 81 mg [id number] PO 09/02/21 08:00 09/02/21 09:46 Enoxaparin Sodium (Lovenox 60mg Syringe) 60 mg 1X ONCE SQ 09/01/21 23:00 09/01/21 23:01 DC 09/01/21 22:49 Sodium Chloride 1,000 ml @ 60 mls/hr 1X ONCE IV 09/01/21 23:00 09/02/21 15:39 DC 09/01/21 22:56 Nitroglycerin (Nitroglycerin) 200 mcg 1X ONCE IART 09/02/21 11:15 09/02/21 11:16 DC 09/02/21 11:44 Verapamil HCl (Verapamil) 2.5 mg 1X ONCE IART 09/02/21 11:15 09/02/21 11:16 DC 09/02/21 11:44 Heparin Sodium (Porcine) (Heparin Sodium) 2,500 unit 1X ONCE IART 09/02/21 11:15 09/02/21 11:16 DC 09/02/21 11:44 Heparin Sodium/ Sodium Chloride (HEPARIN for ARTERIAL LINE FLUSH) 1,000 unit 1X ONCE IART 09/02/21 11:15 09/02/21 11:16 DC 09/02/21 11:15 Heparin Sodium/ Sodium Chloride (HEPARIN for ARTERIAL LINE FLUSH) 1,000 unit 1X ONCE IART 09/02/21 11:15 09/02/21 11:16 DC 09/02/21 11:15 Midazolam HCl (Versed) 2 mg 1X ONCE IV 09/02/21 11:15 09/02/21 11:16 DC 09/02/21 11:42 Fentanyl Citrate (Fentanyl 2ml Vial) 100 mcg 1X ONCE IV 09/02/21 11:15 09/02/21 11:16 DC 09/02/21 11:42 Iodixanol (Visipaque 320) 100 ml 1X ONCE IART 09/02/21 11:15 09/02/21 11:16 DC 09/02/21 12:01 Lidocaine HCl (Xylocaine-Mpf 1% 2ml Vial) 2 ml 1X ONCE INJ 09/02/21 11:15 09/02/21 11:16 DC 09/02/21 11:43 Sodium Chloride 1,000 ml @ 60 mls/hr [id number] IV 09/02/21 12:30 09/02/21 13:27 Justifications for Admission Other Justification ALYSA DANIEL MD Sep 02, 2021 16:28
--- NOTE | 2021-09-02 16:33 | NUR ---
SS following for discharge planning. SS reviewed pt chart and discussed with pt RN. Pt is from home with spouse and is currently requiring oxygen at two liters nasal canula. Cardiology following. Pt had heart cath on 09/02/2021. SS will continue to follow for discharge planning.
[2021-09-02] MEDS ORDERED: IPRATRPIUM/ALBUTEROL 0.5/2.5MG 3 ML NEBU. NEB ONE (16:45)
[2021-09-02] MEDS: CARVEDILOL 6.25 MG TABLET. PO SCH (17:19)
--- NOTE | 2021-09-02 17:32 | NUR ---
This nurse found out pt. was eating hamburger for dinner while administering medication. Talked with the son about beef allergy, he said it was 7-8 years ago she had some allergies with COURTNEY saunders and not with others. And she eaten other hamburger. Dietary called and notified about food allergies again, agrees it shows in their system. Pt. stable, monitoring continues. Pt. with family
--- NOTE | 2021-09-02 18:30 | CARD ---
MR#: [id number] Date of Study: 09/02/2021 Ordering Physician: IQRA QUARLES, Referring Physician: IQRA QUARLES Tech: Carly Gaines [facility] APPROVED REPORT EXAM: Two-dimensional and M-mode echocardiogram with Doppler and color Doppler. Other Information Quality : AverageHR: 64bpm Rhythm : NSR INDICATION Chest Pain RISK FACTORS Hypertension Hyperlipidemia 2D DIMENSIONS Left Atrium(2D)3.6 (1.6-4.0cm)IVSd1.2 (0.7-1.1cm) Aortic Root(2D)3.3 (2.0-3.7cm)LVDd4.5 (3.9-5.9cm) LVOT Diameter1.8 (1.8-2.4cm)PWd1.2 (0.7-1.1cm) LVDs2.7 (2.5-4.0cm)FS (%) 39.5 % SV65.6 mlLVEF(%)70.1 (>50%) Aortic Valve AoV Peak Rob.139.4cm/sAoV VTI29.5cm AO Peak GR.7.8mmHgLVOT Peak Rob.93.7cm/s AO Mean GR.4mmHgAVA (VMAX)1.78cm2 Mitral Valve MV E Rcqjolyx469.3cm/sMV DECEL IANU274lb MV A Tfsgjmuo388.2cm/sE/A Ratio1.2 Pulmonary Valve PV Peak Njtntemq572.7cm/s Tricuspid Valve TR P. Nrvgftel932fb/sTR Peak Gr.20mmHg LEFT VENTRICLE The left ventricle is normal size. There is mild concentric left ventricular hypertrophy. The left ve ntricular systolic function is normal. Estimated ejection fraction 60-65% There is normal LV segmenta l wall motion. Transmitral Doppler flow pattern is Grade II-pseudonormal filling dynamics. RIGHT VENTRICLE The right ventricle is normal size. There is normal right ventricular wall thickness. The right ventr icular systolic function is normal. ATRIA The left atrium is severely dilated. The right atrium is mildly dilated. The interatrial septum is in tact with no evidence for an atrial septal defect or patent foramen ovale as noted on 2-D or Doppler imaging. AORTIC VALVE The aortic valve is normal in structure and function. Mild to moderate aortic insufficiency. There is no significant aortic valvular stenosis. MITRAL VALVE Mitral annular calcification is mild. There is no evidence of mitral valve prolapse. There is no mitr al valve stenosis. Doppler and Color-flow revealed moderate mitral regurgitation. TRICUSPID VALVE The tricuspid valve is normal in structure and function. Doppler and Color Flow revealed mild tricusp id regurgitation. Estimated PAP 35 mmHg. There is no tricuspid valve stenosis. PULMONIC VALVE The pulmonary valve is normal in structure and function. Doppler and Color Flow revealed trace to mil d pulmonic valvular regurgitation. GREAT VESSELS The aortic root is normal in size. The ascending aorta is normal in size. The IVC is normal in size a nd collapses >50% with inspiration. PERICARDIAL EFFUSION There is no evidence of significant pericardial effusion. Critical Notification Critical Value: No <Conclusion> The left ventricular systolic function is normal. Estimated ejection fraction 60-65% There is normal LV segmental wall motion. Transmitral Doppler flow pattern is Grade II-pseudonormal filling dynamics. Mild to moderate aortic insufficiency. Moderate mitral regurgitation. Mild tricuspid regurgitation. Estimated PAP 35 mmHg. There is no evidence of significant pericardial effusion. Signed by : Zion Cortes, Electronically Approved : 09/02/2021 18:29:59
--- NOTE | 2021-09-02 19:30 | NUR ---
Pt. back from [employer] around 1220. Cath site area clean, no bleeding. Vascular assessment done, vitals done as per order, charted. BP on the higher side, EDY Philip notified, got order for Coreg. TR band removed at 1720, transparent dressing done.
[2021-09-02] MEDS: IPRATRPIUM/ALBUTEROL 0.5/2.5MG 3 ML NEBU. NEB SCH (21:00)
[2021-09-02] MEDS ORDERED: ATORVASTATIN CALCIUM 40 MG TABLET. PO SCH (21:00)
[2021-09-03 03:41] VITALS: BP 168/90
[2021-09-03] MEDS: IV 1/2 NORMAL SALINE 1,000 ML IV SCH (05:10)
[2021-09-03 07:00] VITALS: BP 147/91
--- NOTE | 2021-09-03 07:22 | PDOC ---
PROGRESS NOTES Date of Service: DATE: 09/03/21 TIME: : Subjective Subjective Denied any chest pain or shortness of breath Objective Objective Vital Signs Date Time Temp Pulse Resp B/P (MAP) Pulse Ox O2 Delivery O2 Flow Rate FiO2 09/03/21 03:41 97.7 60 20 168/90 (116) 94 Room Air 97.7 09/02/21 12:10 2.0 Intake and Output 09/03/21 07:00 Intake Total 480 ml Balance 480 ml Intake Oral 480 ml # Voids 4 Physical Exam Abdomen: Soft, No tenderness Heart: Regular rate (SR), Normal S1, Normal S2, Other (3/6 holosystolic murmur apex) Extremities: No cyanosis, No edema General: Alert, Oriented X3, Cooperative, No acute distress HEENT: Atraumatic, Mucous membr. moist/pink Lungs: Clear to auscultation, Normal air movement MUSCULOSKELETAL: Osteoarthritic changes both hands Neuro: Normal speech, Sensation intact Psych/Mental Status: Mental status NL, Mood NL Skin: No breakdown, No significant lesion Assessment Assessment 1. Non-STEMI: Cardiac catheterization showed three-vessel coronary artery disease. Refer patient to cardiothoracic surgery team for possible coronary artery bypass surgery. 2D echo showed normal LV systolic function with diastolic dysfunction. 2. Hypertension: Well-controlled. Continue current medical regimen. 3. Hyperlipidemia: Continue statin therapy Plan Plan of Care Problems Medical Problems: (1) Chest pain Status: Acute Comment Review of Relevant I have reviewed the following items edel (where applicable) has been applied. Labs Microbiology 09/01/21 Urine Culture - Final, Complete Medications Current Medications Albuterol/ Ipratropium (Duoneb) 3 ml 1X ONCE NEB Last administered on 09/02/21at 17:48; Start 09/02/21 at 16:45; Stop 09/02/21 at 16:46; Status DC Albuterol/ Ipratropium (Duoneb) 3 ml RTQID NEB Last administered on 09/02/21at 21:00; Start 09/02/21 at 20:00 Aspirin (Ecotrin) 81 mg [id number] PO Last administered on 09/02/21at 09:46; Start 09/02/21 at 08:00 Atorvastatin Calcium (Lipitor) 40 mg QHS PO Last administered on 09/02/21at 22:53; Start 09/02/21 at 21:00 Carvedilol (Coreg) 6.25 mg BIDWMEALS PO Last administered on 09/02/21at 17:19; Start 09/02/21 at 17:00 Fentanyl Citrate (Fentanyl 2ml Vial) 100 mcg 1X ONCE IV Last administered on 09/02/21at 11:42; Start 09/02/21 at 11:15; Stop 09/02/21 at 11:16; Status DC Fentanyl Citrate (Fentanyl 2ml Vial) 100 mcg STK-MED ONCE .ROUTE ; Start 09/02/21 at 10:57; Stop 09/02/21 at 10:57; Status DC Heparin Sodium (Porcine) (Heparin Sodium) 2,500 unit 1X ONCE IART Last administered on 09/02/21at 11:44; Start 09/02/21 at 11:15; Stop 09/02/21 at 11:16; Status DC Heparin Sodium (Porcine) (Heparin Sodium) 10,000 unit STK-MED ONCE .ROUTE ; Start 09/02/21 at 10:57; Stop 09/02/21 at 10:58; Status DC Heparin Sodium/ Sodium Chloride 1,000 ml @ As Directed STK-MED ONCE .ROUTE ; Start 09/02/21 at 10:51; Stop 09/02/21 at 10:51; Status DC Heparin Sodium/ Sodium Chloride (HEPARIN for ARTERIAL LINE FLUSH) 1,000 unit 1X ONCE IART Last administered on 09/02/21at 11:15; Start 09/02/21 at 11:15; Stop 09/02/21 at 11:16; Status DC Heparin Sodium/ Sodium Chloride (HEPARIN for ARTERIAL LINE FLUSH) 1,000 unit 1X ONCE IART Last administered on 09/02/21at 11:15; Start 09/02/21 at 11:15; Stop 09/02/21 at 11:16; Status DC Iodixanol (Visipaque 320) 100 ml 1X ONCE IART Last administered on 09/02/21at 12:01; Start 09/02/21 at 11:15; Stop 09/02/21 at 11:16; Status DC Iodixanol (Visipaque 320) 100 ml STK-MED ONCE .ROUTE ; Start 09/02/21 at 10:51; Stop 09/02/21 at 10:51; Status DC Lidocaine HCl (Xylocaine-Mpf 1% 2ml Vial) 2 ml 1X ONCE INJ Last administered on 09/02/21at 11:43; Start 09/02/21 at 11:15; Stop 09/02/21 at 11:16; Status DC Lidocaine HCl (Xylocaine-Mpf 1% 2ml Vial) 2 ml STK-MED ONCE .ROUTE ; Start 09/02/21 at 10:51; Stop 09/02/21 at 10:51; Status DC Midazolam HCl (Versed) 2 mg 1X ONCE IV Last administered on 09/02/21at 11:42; Start 09/02/21 at 11:15; Stop 09/02/21 at 11:16; Status DC Midazolam HCl (Versed) 2 mg STK-MED ONCE .ROUTE ; Start 09/02/21 at 10:57; Stop 09/02/21 at 10:57; Status DC Nitroglycerin (Nitroglycerin) 200 mcg 1X ONCE IART Last administered on 09/02/21at 11:44; Start 09/02/21 at 11:15; Stop 09/02/21 at 11:16; Status DC Nitroglycerin (Nitroglycerin) 200 mcg STK-MED ONCE .ROUTE ; Start 09/02/21 at 10:59; Stop 09/02/21 at 11:00; Status DC Nitroglycerin (Nitrostat) 0.4 mg PRN Q5MIN PRN SL CHEST PAIN; Start 09/02/21 at 12:30 Sodium Chloride 1,000 ml @ 60 mls/hr [id number] IV Last administered on 09/02/21at 13:27; Start 09/02/21 at 12:30 Verapamil HCl (Verapamil) 2.5 mg 1X ONCE IART Last administered on 09/02/21at 11:44; Start 09/02/21 at 11:15; Stop 09/02/21 at 11:16; Status DC Verapamil HCl (Verapamil) 5 mg STK-MED ONCE .ROUTE ; Start 09/02/21 at 10:57; Stop 09/02/21 at 10:57; Status DC Vitals/I & O Vital Sign - Last 24 Hours 09/02/21 09/02/21 09/02/21 09/02/21 08:00 11:00 11:42 11:44 Temp 97.4 97.4 Pulse 61 70 Resp 16 18 B/P (MAP) 154/77 (102) Pulse Ox 98 O2 Delivery Room Air O2 Flow Rate 2.0 09/02/21 09/02/21 09/02/21 09/02/21 12:10 12:30 12:45 13:00 Temp 97.8 97.8 97.7 97.8 97.8 97.7 Pulse 66 58 58 56 Resp 04 14 18 18 B/P (MAP) 164/82 (109) 155/82 (106) 156/84 (108) Pulse Ox 99 O2 Delivery Nasal Cannula O2 Flow Rate 2.0 09/02/21 09/02/21 09/02/21 09/02/21 13:15 13:45 14:15 15:00 Temp 97.7 98.2 98.2 98.1 97.7 98.2 98.2 98.1 Pulse 56 70 72 65 Resp 16 B/P (MAP) 156/81 (106) 165/86 (112) 149/77 (101) 165/78 (107) Pulse Ox 95 09/02/21 09/02/21 09/02/21 09/02/21 15:15 16:15 17:19 17:49 Temp 98.1 98.2 98.1 98.2 Pulse 66 66 65 Resp 18 B/P (MAP) 161/86 (111) 167/84 (111) 165/78 Pulse Ox 98 O2 Delivery Room Air 09/02/21 09/02/21 09/02/21 09/02/21 18:15 19:50 20:00 23:26 Temp 97.9 98.1 98.0 97.9 98.1 98.0 Pulse 70 78 71 Resp 18 B/P (MAP) 172/91 (118) 155/89 (111) 163/96 (118) Pulse Ox 97 96 O2 Delivery Room Air Room Air Room Air 09/03/21 03:41 Temp 97.7 97.7 Pulse 60 Resp 20 B/P (MAP) 168/90 (116) Pulse Ox 94 O2 Delivery Room Air Intake and Output 09/02/21 09/02/21 09/03/21 15:00 23:00 07:00 Intake Total 0 ml 380 ml 100 ml Balance 0 ml 380 ml 100 ml CHETAN LLANOS MD Sep 03, 2021 07:22
[2021-09-03] MEDS: IPRATRPIUM/ALBUTEROL 0.5/2.5MG 3 ML NEBU. NEB SCH ×2 (08:22→11:34)
[2021-09-03] MEDS: SENNOSIDES/DOCUSATE 8.6/50MG TABLET. PO SCH (08:49)
[2021-09-03] MEDS: ASPIRIN ENTERIC COATED 81 MG TABLET.DR. PO SCH (08:49)
[2021-09-03] MEDS: CARVEDILOL 6.25 MG TABLET. PO SCH (08:49)
[2021-09-03] MEDS: valACYclovir 500 MG TABLET. PO SCH (08:49)
[2021-09-03 10:52] VITALS: BP 145/85
[2021-09-03] MEDS ORDERED: CARV6.2511 PO (12:49)
[2021-09-03] MEDS ORDERED: ASPI325T8 PO (12:49)
[2021-09-03] MEDS ORDERED: ATOR40TA59 PO (12:49)
--- NOTE | 2021-09-03 12:57 | PDOC3 ---
Discharge Summary Visit Information Date of Admission: Sep 01, 2021 Date of Discharge: Sep 03, 2021 Final Diagnosis NSTEMI, sens trop peak 160, mild htn hyperlipids CAD Hx nephrectomy, CKD 3, carful with contrast and kidney, fluid, not diuresis now severe malnutrition, alb 2.6 acute systolic CHF, BNP up Vitals/I&O Problems Medical Problems: (1) Chest pain Status: Acute Brief Hospital Course Allergies Allergies Coded Allergies Type Severity Reaction Last Updated Verified Beef Containing Products Allergy Severe rash/soa 09/02/21 No Vital Signs Vital Signs Date Time Temp Pulse Resp B/P (MAP) Pulse Ox O2 Delivery O2 Flow Rate FiO2 09/03/21 11:36 93 Room Air 09/03/21 10:52 79 18 145/85 (105) 09/03/21 08:00 2.0 09/03/21 07:00 98.2 98.2 Lab Results Laboratory Tests Test 09/01/21 13:19 09/01/21 14:47 09/02/21 04:00 Troponin I High Sensitivity 159 ng/L (4-50) 163 ng/L (4-50) Triglycerides Level 140 mg/dL (0-150) Cholesterol Level 208 mg/dL (0-200) LDL Cholesterol, Calculated 142 mg/dL (0-100) VLDL Cholesterol, Calculated 28 mg/dL (0-40) Non-HDL Cholesterol Calculated 170 mg/dL (0-129) HDL Cholesterol 38 mg/dL (40-60) Cholesterol/HDL Ratio 5.5 Brief Hospital Course Ms. Porter is a 66 old admit for NSTEMI lab courier 09/02 3 vessel dz, rec CABG, can be done outpatient, Assessment Assessment CATH 1. Severe three-vessel coronary artery disease iwth 80 % mid LAD, - 2. Diaphragmatic wall hypokinesis with ejection fraction estimated at 55% recommend CABG, referral sent Discharge Information Scheduled Aspirin (Aspirin) 325 Mg Tablet, 1 TAB PO DAILY for cardiac, #100 Prescribed by: ALYSA DANIEL on 09/03/21 1249 Atorvastatin Calcium (Atorvastatin Calcium) 40 Mg Tablet, 40 MG PO QHS for cardiac, #30 Prescribed by: ALYSA DANIEL on 09/03/21 1249 Carvedilol (Carvedilol ) 6.25 Mg Tablet, 6.25 MG PO BIDWMEALS for cardiac, #60 Ref 1 Prescribed by: ALYSA DANIEL on 09/03/21 1249 Cholecalciferol (Vitamin D3) (Vitamin D) 1,000 Unit Capsule, 1 CAP PO DAILY, #30 Ref 3 (Reported) Entered as Reported by: CHAVA GARRETT on 12/23/142231 Last Action: HELD on 09/01/211315 by JUAN ANTONIO GOODSON MD Cyclobenzaprine Hcl (Cyclobenzaprine Hcl) 10 Mg Tablet, 1 TAB PO TID, #90 (Reported) Entered as Reported by: CHAVA GARRETT on 12/23/142231 Last Action: HELD on 09/01/211315 by JUAN ANTONIO GOODSON MD Tramadol Hcl (Tramadol Hcl) 50 Mg Tablet, 1 TAB PO PRN Q6HRS, #30 (Reported) Entered as Reported by: CHAVA GARRETT on 12/23/142231 Last Action: Continued on 09/01/211315 by JUAN ANTONIO GOODSON MD Valacyclovir Hcl (Valtrex) 1,000 Mg Tablet, 1 TAB PO BID, #20 Prescribed by: COLE EVANS on 09/27/16 1221 Last Action: Converted on 09/01/211315 by JUAN ANTONIO GOODSON MD Scheduled PRN Albuterol Sulfate (Proair Hfa Inhaler) 8.5 Gm Hfa.aer.ad, 2 PUFF IH PRN Q4-6HRS PRN for wheezing for 21 Days, #1 Ref 0 (Reported) Entered as Reported by: Mariajose Garcia on 09/02/21325 Last Action: New Order on 09/02/21325 by Mariajose Garcia Discontinued Medications Atorvastatin Calcium (Atorvastatin Calcium) 20 Mg Tablet, 1 TAB PO DAILY, #30 Ref 5 (Reported) Entered as Reported by: CHAVA GARRETT on 12/23/142231 Last Action: Continued on 09/01/211315 by JUAN ANTONIO GOODSON MD Hydrocodone/Apap 5-325 ([place] 5-325 Tablet) 1 Each Tablet, 1 TAB PO PRN Q6HRS PRN for PAIN, #15 Prescribed by: COEL EVANS on 09/27/16 1221 Last Action: HELD on 09/01/211315 by JUAN ANTONIO GOODSON MD Patient Instructions Patient Instructions CATH FINDINGS, Dr. Pasnoori 1. Hemodynamics: Left ventricular end-diastolic pressure of 7 mmHg. No pu llback gradient across the aortic valve. 2. Left ventriculography: Diaphragmatic wall hypokinesis with ejection fraction estimated at 55%. No significant mitral regurgitation seen. 3. Coronary angiography: a. The left main coronary artery arose from the left sinus of Valsalva, gave rise to the left anterior descending and left circumflex arteries and did not show any significant stenosis. b. The left anterior descending artery showed 80% bifurcation lesion involving the mid segment of LAD and the diagonal branch. c. The left circumflex artery showed 100% chronic total occlusion in the proximal to mid segment with distal reconstitution of obtuse marginal branches from left to left collaterals. d. The right coronary artery arose from the right sinus of Valsalva and showed 100% chronic total occlusion in the proximal segment with distal reconstitution of posterior descending and posterolateral branches from left to right collaterals. Justicifation of Admission Dx: Justifications for Admission: Justification of Admission Dx: Yes (NSTEMI) ALYSA DANIEL MD Sep 03, 2021 12:57
== END 2021-09-03 13:45 | disposition home or self-care (01) | DRG 280 ==
LOC: ER 08:53 → 6 SOUTH 11:05
PROVIDERS: ADMIT Student in an Organized Health Care Education/Training Program; ATTEND Student in an Organized Health Care Education/Training Program
PROC: B2111ZZ Fluoroscopy of Multiple Coronary Arteries using Low Osmolar Contrast (ICD-10-PCS; principal; 2021-09-02)
PROC: B2151ZZ Fluoroscopy of Left Heart using Low Osmolar Contrast (ICD-10-PCS; 2021-09-02)
PROC: 4A023N7 Measurement of Cardiac Sampling and Pressure, Left Heart, Percutaneous Approach (ICD-10-PCS; 2021-09-02)
DX: I21.4 Non-ST elevation (NSTEMI) myocardial infarction (principal); I50.21 Acute systolic (congestive) heart failure; E43 Unspecified severe protein-calorie malnutrition; I13.0 Hypertensive heart and chronic kidney disease with heart failure and stage 1 through stage 4 chronic kidney disease, or unspecified chronic kidney disease; Z79.01 Long term (current) use of anticoagulants; E78.00 Pure hypercholesterolemia, unspecified; E78.5 Hyperlipidemia, unspecified; H54.8 Legal blindness, as defined in USA; G89.29 Other chronic pain; K21.9 Gastro-esophageal reflux disease without esophagitis; R01.1 Cardiac murmur, unspecified; I25.10 Atherosclerotic heart disease of native coronary artery without angina pectoris; I25.2 Old myocardial infarction; J45.909 Unspecified asthma, uncomplicated; N18.30 Chronic kidney disease, stage 3 unspecified; Z79.82 Long term (current) use of aspirin; Z90.5 Acquired absence of kidney; Z95.1 Presence of aortocoronary bypass graft; Z88.8 Allergy status to other drugs, medicaments and biological substances; Z68.29 Body mass index [BMI] 29.0-29.9, adult
CPT/HCPCS: 36415; 71045; 80053; 80061; 81001; 83690; 83880; 84484; 85025; 85610; 85730; 87086; 93005; 93306; 93458; 94640; 96372; 99152; 99153; C1894; J1644; J1650; J2250; J3010; J3490; J7030; Q9967; 99285-25; C8929; G0378